=== PATIENT | male | born 1935 | race Caucasian/White ===

== ENCOUNTER 2018-08-20 20:08 | Emergency (ER) | payer OTHER ==
[~2018-08-20] VITALS: Ht 182.9 cm; Wt 78.4 kg
[2018-08-20] MEDS ORDERED: KDUR10 PO (20:50)
[2018-08-20] MEDS ORDERED: ASPI81 PO (20:50)
[2018-08-20] MEDS ORDERED: FINA5TAB41 PO (20:50)
[2018-08-20] MEDS ORDERED: ACET-2247 PO (20:50)
[2018-08-20] MEDS ORDERED: TRAM50TA4 PO (20:50)
[2018-08-20] MEDS ORDERED: DORZ210OS OD (20:50)
[2018-08-20] MEDS ORDERED: AMLO-512 PO (20:50)
[2018-08-20] MEDS ORDERED: TAMS0.4C32 PO (20:50)
[2018-08-20] MEDS ORDERED: IOVERSOL 350 MG/ML 100 ML VIAL ONE (20:54)
[2018-08-20] MEDS ORDERED: SODIUM CHLORIDE 0.9% 100 ML ONE (20:55)
[2018-08-20 21:10] LABS: BASOPHILS % (AUTO) 0.8 % (0.0-2.0); EOSINOPHILS % (AUTO) 0.8 % (1.0-6.0); HEMATOCRIT 27.9 % (41-53); HEMOGLOBIN 9.2 g/dL (13.5-17.5); LYMPHOCYTES # (AUTO) 0.6 K/uL (1.0-4.8); LYMPHOCYTES % (AUTO) 5.5 % (22.0-44.0); MEAN CORPUSCULAR HEMOGLOBIN 28.9 pg (26.0-34.0); MEAN CORPUSCULAR VOLUME 88 fL (80-100); MONOCYTES # (AUTO) 0.9 K/uL (0.1-1.0); MONOCYTES % (AUTO) 8.3 % (2.0-9.0); NEUTROPHILS # (AUTO) 9.1 K/uL (1.8-7.7); NEUTROPHILS % (AUTO) 84.6 % (40.0-70.0); PLATELET COUNT (AUTO) 485 K/uL (150-450); RED BLOOD CELL COUNT(AUTO) 3.19 MIL/uL (4.50-5.90); RED CELL DISTRIBUTION WIDTH 17.1 % (11.5-14.5)
[2018-08-20 21:21] LABS: CALCIUM, TOTAL 8.7 mg/dL (8.8-10.5); CREATININE 1.97 mg/dL (0.60-1.30); INR 1.1 (0.9-1.1); POTASSIUM 4.6 mmol/L (3.5-5.1); PROTHROMBIN TIME 11.2 SEC (9.4-11.6)
[2018-08-20 21:27] LABS: ALBUMIN 2.9 g/dL (3.4-5.0); BILIRUBIN,TOTAL 0.3 mg/dL (0.1-1.0); TOTAL PROTEIN, SERUM 7.4 g/dL (6.4-8.2)
[2018-08-20] MEDS: SODIUM CHLORIDE 0.9% 1,000 ML IV ONE (22:11)
[2018-08-20 22:59] LABS: APPEARANCE,URINE CLOUDY (CLEAR); BILIRUBIN,URINE NEGATIVE (NEGATIVE); GLUCOSE, URINE (UA) NEGATIVE (NEGATIVE); KETONES,URINE NEGATIVE (NEGATIVE); LEUKOCYTE ESTERASE ,URINE LARGE (NEGATIVE); NITRATE,URINE NEGATIVE (NEGATIVE); OCCULT BLOOD,URINE MODERATE (NEGATIVE); PROTEIN,URINE POS 1+ (NEGATIVE); UROBILINOGEN,URINE 0.2 mg/dL (<=1.0)
[2018-08-20 23:10] LABS: BACTERIA,URINE Rare /HPF (None Seen); WBC,URINE >100 /HPF (0-5)
[2018-08-20] MEDS: ACETAMINOPHEN 500 MG TABLET PO ONE (23:10)
[2018-08-20 23:11] LABS: SQUAMOUS EPITHELIAL CELL,UR Rare /LPF (None Seen)
[2018-08-21] MEDS: CefTRIAXone 1 GM/DEXTROSE 50 ML IV ONE
[2018-08-21 01:22] VITALS: BP 137/88
== END 2018-08-21 02:28 | disposition home or self-care (01) ==
LOC: EMS 20:10
DX: F03.90 Unspecified dementia, unspecified severity, without behavioral disturbance, psychotic disturbance, mood disturbance, and anxiety (principal); D64.9 Anemia, unspecified; I12.9 Hypertensive chronic kidney disease with stage 1 through stage 4 chronic kidney disease, or unspecified chronic kidney disease; E11.22 Type 2 diabetes mellitus with diabetic chronic kidney disease; N18.9 Chronic kidney disease, unspecified; R41.82 Altered mental status, unspecified; Z90.49 Acquired absence of other specified parts of digestive tract; Z88.0 Allergy status to penicillin; Z88.5 Allergy status to narcotic agent; Z79.82 Long term (current) use of aspirin
CPT/HCPCS: 36415; 70450; 70496; 71045; 80053; 81001; 82962; 84484; 85025; 85610; 87086; 93005; 96361; 96365; 99284; J0696; J7030; J7050; Q9967